=== PATIENT | female | born 1990 | race Caucasian/White ===

== ENCOUNTER 2016-11-08 02:23 | Inpatient (IN) | payer OTHER ==
[2016-11-08] VITALS (35 sets, daily range): BP systolic 99–168; BP diastolic 54–112; PULSE 70–126; TEMP 97.5–99
[2016-11-08 02:39] LABS: BASO # 0.1 (0.0-0.2); BASO % 0.2 % (0.0-2.0); GRAN # 17.9 (1.4-6.5); GRAN % 88.3 % (42.2-75.2); HEMATOCRIT 38.7 % (37.0-47.0); HEMOGLOBIN 13.7 g/dl (12.5-16.0); LYMPH # 1.2 (1.2-3.4); MEAN CELL VOLUME 90 fl (80.0-100.0); MEAN CORPUSCULAR HEMOGLOBIN 32 pg (27.0-31.0); MEAN CORPUSCULAR HGB CONC 35 g/dl (33.0-37.0); MONO # 0.9 (0.1-0.6); MONO % 4.2 % (1.7-9.3); PLATELET COUNT 198 K/mm3 (130-400); RED BLOOD COUNT 4.29 M/mm3 (4.10-5.30); REDCELL DISTRIBUTION WIDTH-CV 12.9 % (11.5-14.5)
[2016-11-08 02:43] LABS: WHITE BLOOD COUNT 20.3 K/mm3 (4.8-10.8)
[2016-11-08] MEDS ORDERED: PRENATAL1 TA7 PO (02:54)
[2016-11-09 03:30] VITALS: BP 110/59; PULSE 81
[2016-11-09 07:57] LABS: BASO % 0.2 % (0.0-2.0); EOS # 0.1 (0.0-0.7); EOS % 0.4 % (0-4.0); GRAN # 9.5 (1.4-6.5); GRAN % 78.5 % (42.2-75.2); LYMPH # 1.3 (1.2-3.4); MEAN CORPUSCULAR HGB CONC 34 g/dl (33.0-37.0); MEAN PLATELET VOLUME 9.5 fl (7.4-10.4); MONO # 1.1 (0.1-0.6); MONO % 9.1 % (1.7-9.3); PLATELET COUNT 139 K/mm3 (130-400); RED BLOOD COUNT 3.13 M/mm3 (4.10-5.30); REDCELL DISTRIBUTION WIDTH-CV 13.2 % (11.5-14.5); WHITE BLOOD COUNT 12.1 K/mm3 (4.8-10.8)
[2016-11-09 08:11] LABS: HEMATOCRIT 29.8 % (37.0-47.0); HEMOGLOBIN 10.1 g/dl (12.5-16.0); MEAN CELL VOLUME 95 fl (80.0-100.0); MEAN CORPUSCULAR HEMOGLOBIN 32 pg (27.0-31.0)
[2016-11-09 08:40] VITALS: BP 129/71; PULSE 90; TEMP 97.8
[2016-11-09 17:00] VITALS: BP 119/66; PULSE 75; TEMP 98.1
[2016-11-09 20:00] VITALS: BP 116/54; PULSE 74; TEMP 98
[2016-11-10 09:20] VITALS: BP 129/69; PULSE 86; TEMP 97.6
[2016-11-10 17:07] VITALS: BP 117/63; PULSE 79; TEMP 97.8
[2016-11-10 19:55] VITALS: BP 124/68; PULSE 76; TEMP 98.1
[2016-11-11 07:50] VITALS: BP 119/61; PULSE 64; TEMP 97.7
[2016-11-11] MEDS ORDERED: PERCOCET 325 MG1 TA2 PO (11:56)
[2016-11-11] MEDS ORDERED: IBU800 M1 PO (11:56)
[2016-11-11 16:15] VITALS: BP 131/73; PULSE 80; TEMP 98.1
== END 2016-11-11 16:30 | disposition home or self-care (01) | DRG 766 ==
LOC: LDR 02:23 → OB 02:23
PROVIDERS: Student in an Organized Health Care Education/Training Program
PROC: 10D00Z1 Extraction of Products of Conception, Low, Open Approach (ICD-10-PCS; principal; 2016-11-08)
DX: O48.0 Post-term pregnancy (principal); O62.1 Secondary uterine inertia; O76 Abnormality in fetal heart rate and rhythm complicating labor and delivery; Z3A.42 42 weeks gestation of pregnancy; Z37.0 Single live birth
CPT/HCPCS: J0690; J1885; J2270; J2370; J2400; J2405; J2795; J7120